=== PATIENT | female | born 1985 | race Caucasian/White ===

== ENCOUNTER 2018-01-09 13:50 | Emergency (ER) | payer OTHER ==
[2018-01-09] MEDS: ACETAMINOPHEN 500 MG TAB PO (15:09)
== END 2018-01-09 15:50 | disposition home or self-care (01) ==
LOC: FTE 13:50
DX: H66.93 Otitis media, unspecified, bilateral (principal); J04.0 Acute laryngitis; J06.9 Acute upper respiratory infection, unspecified
CPT/HCPCS: 99284; Z7502